=== PATIENT | female | born 1950 | race Caucasian/White ===

== ENCOUNTER 2023-06-24 10:05 | Emergency (ER) | payer MEDICARE, BC, SELFPAY ==
[2023-06-24 10:12] VITALS: BP 111/75; PULSE 71; RESP 18; O2SAT 93
--- NOTE | 2023-06-24 10:17 | DI.CT_ITS ---
Exam(s) CT HEAD CERVICAL SPINE WO EXAM: CT HEAD CERVICAL SPINE WO CLINICAL HISTORY: fall, neck pain. TECHNIQUE: Imaging Protocol: Axial computed tomography images with coronal and sagittal reformatted images were created and reviewed COMPARISON: No exams were available for comparison FINDINGS: CT Head: Ventricles and Extra axial spaces: Normal in size and morphology for the patient's age. Hemorrhage: None. Cerebral parenchyma: There is no evidence of an acute territorial infarct. Midline shift: None. Brainstem/Cerebellum: Normal. Calvarium: Normal. Visualized Paranasal sinuses/Mastoids: Clear. Soft Tissues: Unremarkable. CT Cervical Spine: Bones: No acute fracture or subluxation. 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 There is also absence of the right aspect of the posterior arch of C1. There is straigh tening of the normal cervical lordosis. This may be due to muscle spasm or patient positioning. Deg enerative changes are seen in the cervical spine. Soft Tissues: Unremarkable. Lung Apices: Clear. IMPRESSION: 1. No acute intracranial process. 2. No acute fracture or subluxation in the cervical spine. 3. Findings were discussed with Dr. Mariee at 11:09 a.m. on 06/24/2023. RADIATION DOSE DELIVERED: 1,326.56mGy.cm Total DLP DATA REPOSITORY: All CT scans at this facility are submitted to the National Radiology Data Registry (NRDR) Dose Index Registry (DIR) with the [employer] ([employer]). RADIATION OPTIMIZATION: All CT scans at this facility use at least one of these dose optimization te chniques: automated exposure control; mA and/or kV adjustment per patient size (includes targeted exa ms where dose is matched to clinical indication); or iterative reconstruction.
--- NOTE | 2023-06-24 10:18 | ED.GENADUL_ITS ---
Discharge Plan Disposition Patient Disposition: Home Discharge Details Chief Complaint: Fall/Non TraumaCriteria Clinical Impression: Facial laceration Primary Care Provider: None,None ED Provider: Matheus Mariee Home Meds and New Rx's Prescriptions: No Action gabapentin 600 mg Tablet 600 mg PO TID tranylcypromine 10 mg Tablet 10 mg PO TID famotidine 40 mg Tablet 40 mg PO DAILY omeprazole 40 mg Capsule,Delayed Release(Dr/Ec) 40 mg PO DAILY simvastatin 20 mg Tablet 20 mg PO DAILY lamotrigine 100 mg Tablet 100 mg PO DAILY fluticasone propionate [Flovent] 110 mcg/actuation Hfa Aerosol Inhaler 1 puff INHALATION BID clonazepam 0.25 mg Tablet,Disintegrating 0.25 mg PO TID aspirin 81 mg Capsule 81 mg PO DAILY Discharge Instructions Instructions: Facial Laceration (ED) Additional Instructions: Please keep wound clean and dry. 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 Likely simple contusion with laceration low suspicion for skull fracture or intracerebral hemorrhage low suspicion for cervical spine fracture. Will obtain imaging, will anesthetize wound and suture with observable sutures, patient is up-to-date with Tdap. 11: 49 patient resting comfortably neurologically intact. Wound anesthetized, irrigated, explored, 3 x 5-0 simple erupted sutures and Steri-Strip applied. Home care instructions and return precautions given HPI General Date/Time Provider Initiated Documentation: 06/24/23 10:07 . HPI Narrative: 72-year-old female history of functional motor disorder presents after mechanical fall from standing, hit head, no loss of conscious, sustained laceration to left brow. Does have acute on chronic neck pain lateral right side Related Data Home Medications Medication Instructions Recorded Confirmed aspirin 81 mg capsule 81 mg PO DAILY 06/24/23 06/24/23 clonazepam 0.25 mg disintegrating 0.25 mg PO TID 06/24/23 06/24/23 tablet famotidine 40 mg tablet 40 mg PO DAILY 06/24/23 06/24/23 fluticasone propionate 110 1 puff inhalation BID 06/24/23 06/24/23 mcg/actuation HFA aerosol inhaler gabapentin 600 mg tablet 600 mg PO TID 06/24/23 06/24/23 lamotrigine 100 mg tablet 100 mg PO DAILY 06/24/23 06/24/23 omeprazole 40 mg capsule,delayed 40 mg PO DAILY 06/24/23 06/24/23 release simvastatin 20 mg tablet 20 mg PO DAILY 06/24/23 06/24/23 tranylcypromine 10 mg tablet 10 mg PO TID 06/24/23 06/24/23 Allergies Allergy/AdvReac Type Severity Reaction Status Date / Time Sulfa (Sulfonamide Allergy Severe Hives Unverified 06/24/23 10:18 Antibiotics) morphine AdvReac Intermediate Itching Unverified 06/24/23 10:18 oxycodone [From OxyContin] AdvReac Intermediate Itching Unverified 06/24/23 10:18 General Stated Complaint: Fall/Non TraumaCriteria BERT: 3 Review of Systems Narrative: Review of Systems Constitutional: negative Eyes: negative ENT: negative Cardiovascular: negative Respiratory: negative Gastrointestinal: negative : negative Musculoskeletal: Neck pain Skin: Brow laceration Neurologic: Head injury Psych: negative PFSH All Active Problems (Updated 06/24/23 @ 11:50 by Matheus Mariee MD) Facial laceration (Acute) Medical History (Updated 06/24/23 @ 11:50 by Matheus Mariee MD) Functional movement disorder Social History Smoking/Tobacco Use Status: Never Smoking risk assessment performed?: Yes Alcohol Intake: current Alcohol Intake frequency: holidays/special occasions only Substance use type: does not use Do you feel safe at home: Yes Do you feel safe in your relationship?: Yes Exam Narrative Exam Narrative: Physical Examination General: alert, awake, cooperative, resting comfortably, no acute distress HEENT: normocephalic, brow laceration, 2.5 cm nongaping hemostatic no foreign body; PERRL, EOM intact, conjunctiva normal; no nasal discharge; moist mucous membranes, oral and pharyngeal mucosa normal, tolerating secretions Neck: supple, trachea midline; full ROM; no midline cervical tenderness, does have right paraspinal muscular tension Chest: normal to inspection Respiratory: normal respiratory effort, speaking in full sentences, clear to auscultation, no wheezing, rales or rhonchi Cardiac: regular rate, regular rhythm, S1S2 intact, no murmurs rubs or gallops GI: abdomen soft, non-tender, non-distended; no palpable mass or hepatosplenomegaly Back: No midline spinal tenderness step-off or deformity Skin: 2.5 cm nongaping laceration to lateral left brow, hemostatic no foreign body Neuro: AAOx3, normal speech, moving all extremities; 5 out of 5 strength upper and lower extremities bilaterally, cranial nerves II through XII intact, no truncal ataxia Extremities: No deformity Psych: Appropriate mood and affect Course Vital Signs Vital signs: Vital Signs Pulse 71 06/24/23 10:12 Respiratory Rate 18 06/24/23 10:12 Blood Pressure 111/75 06/24/23 10:12 Pulse Oximetry 93 06/24/23 10:12 Pulse 71 06/24/23 10:12 Respiratory Rate 18 06/24/23 10:12 Blood Pressure 111/75 06/24/23 10:12 Blood Pressure Position Sitting 06/24/23 10:12 Pulse Oximetry 93 06/24/23 10:12 Oxygen Delivery Method Room Air 06/24/23 10:12 Oxygen Flow Rate 0 06/24/23 10:12 Pain Level 5 06/24/23 10:12 Procedures Laceration Laceration 1: Site: face Side (If applicable): left Size (cm): 2.5 Description: linear Depth: simple, single layer Local Anesthetic: other anesthetic (LET) Pre-repair: wound explored and irrigated extensively Skin layer closed with: vicryl Size (cm): 5-0 Number of sutures: 3 Technique: simple, interrupted
[2023-06-24] MEDS: Lidocaine 5% Patch 1 PATCH TP (10:37)
[2023-06-24] MEDS: Lidocaine/Epinephri/Tetracaine Topical Gel 3 ML TP (10:37)
== END 2023-06-24 11:57 | disposition home or self-care (01) ==
PROVIDERS: Emergency Provider Emergency Medicine
DX: S01.81XA Laceration without foreign body of other part of head, initial encounter (principal); W19.XXXA Unspecified fall, initial encounter
CPT/HCPCS: 12011; 99284; 70450; 72125; 99283